=== PATIENT | male | born 1935 | race Caucasian/White ===

== ENCOUNTER 2019-08-03 07:52 | Inpatient (IN) ==
[2019-08-03] MEDS ORDERED: ASPIRIN PO ONE (07:58)
[2019-08-03] MEDS ORDERED: CARDIZEM 100 MG/NS 100 MG/100 ML IVPB IV SCH (08:00)
[2019-08-03] MEDS ORDERED: CARDIZEM IV ONE ×3 (08:00→12:42)
--- NOTE | 2019-08-03 08:17 | PROVIDER DOCUMENTATION ---
HPI-Cardiac General - General Chief Complaint: Chest Pain Stated Complaint: AFIB RVR/CHEST PAIN Time Seen by Provider: 08/03/19 07:55 Source: patient, EMS Allergies/Adverse Reactions: Patient Allergies Allergy/AdvReac Type Severity Reaction Status Date / Time Latex, Natural Rubber AdvReac RASH Verified 07/05/19 12:03 Home Medications: Home Medication List Medication Instructions Recorded Confirmed Last Taken Type Levothyroxine [Synthroid] 50 microgm PO DAILY 03/22/18 07/08/19 Unknown History Ubidecarenone [Coq-10] 100 mg PO DAILY 03/22/18 07/08/19 Unknown History Apixaban [Eliquis] 1 tab PO BID 07/05/19 07/08/19 Unknown History Azelastine HCl 2 spr NS BID 07/05/19 07/08/19 Unknown History Metoprolol [Lopressor] 50 mg PO BID 07/05/19 07/08/19 Unknown History Mv-Mins/Folic/Lycopene/Ginkgo [One 1 ea PO DAILY 07/05/19 07/08/19 Unknown History Daily Men's 50+ Tablet] - History of Present Illness-Cardiac Nature of Presenting Problem: HX OF AFIB, BROUGHT BY EMS FOR CHEST PAIN AND INCREASED HR THIS MORNING. NO FEVER. NO LE PAIN OR SWELLING. PAIN IS MIDSTERNAL Location: reports: substernal Quality of Pain: reports: aching Severity in ED: mild Onset/Duration: this morning Timing: improving Context/Activities at Onset: reports: none Modifying Factors: improves with: nothing Palpitation Quality: fast/pounding heart beat History of arrythmia: reports: A-Fib Recent use of:: reports: no stimulants Associated Symptoms: denies: abdominal pain, fever/chills Similar Symptoms Previously?: Yes Review of Systems - Adult - REVIEW OF SYSTEMS - ADULT Constitutional: reports: no symptoms reported Cardiovascular: reports: see HPI Respiratory: reports: no symptoms reported Gastrointestinal: reports: no symptoms reported Neurological: reports: no symptoms reported All Other Systems: Reviewed and Negative Past History - Adult - PAST MEDICAL HISTORY-ADULT Review of Records: reports: Nursing Assessment Review, Medications Reviewed, Social history reviewed & non-contributory. Cardiovascular: reports: arrhythmia (PVCs), HTN, hyperlipidemia Gastrointestinal: reports: GERD Psychiatric: reports: anxiety Other Conditions: reports: denies history - PRIOR SURGERIES/PROCEDURES Surgical/Procedure History: reports: hernia repair - IMMUNIZATION STATUS Childhood Immunizations: See Nurse Assessment Flu Vaccine: See Nurse Assessment - FAMILY HISTORY Family History: reviewed, not pertinent Physical Exam-General - PHYSICAL EXAM-ADULT Initial Vital Signs Reviewed: Yes - CONSTITUTIONAL General Appearance: alert, no apparent distress - EYES Eyes: PERRL/EOMI - HEAD, EARS, NOSE, MOUTH & THROAT HENMT: moist mucous membranes, normal ENT inspection - NECK Neck: non-tender, full range of motion, supple - RESPIRATORY Respiratory: chest non-tender, lungs clear, normal breath sounds, no respiratory distress - CARDIOVASCULAR Cardiovascular: no edema, no gallop, no JVD, tachycardia, irregularly irregular - GASTROINTESTINAL (ABDOMEN) Abdominal Exam: normal bowel sounds, non tender, soft - MUSCULOSKELETAL Extremity: normal inspection, no pedal edema, no calf tenderness - SKIN Integumentary: normal color, normal turgor, warm/dry - NEUROLOGIC Neurologic: no motor/sensory deficits - PSYCHIATRIC Psych/Mental Status: normal mood/affect - HEART Score HEART Score: History: Slightly Suspicious HEART Score: ECG: Non-Specific Repolarization Disturbance/LBBB/PM HEART Score: Age: > or = 65 Years HEART Score: Risk Factors for Atherosclerotic Disease: 1 or 2 Risk Factors HEART Score: Troponin: < or = Normal Limit Total HEART Score:: 4 Progress - PLAN OF CARE/RESULTS Progress/Plan/Lab Results: Vital Signs - 8 hr 08/03/19 07:56 08/03/19 08:14 08/03/19 08:27 Temperature 99.7 F H Pulse Rate 161 H 155 H 123 H Respiratory Rate 19 20 23 Blood Pressure 109/75 86/62 83/63 O2 Sat by Pulse Oximetry 96 95 95 08/03/19 08:31 Temperature Pulse Rate 125 H Respiratory Rate 28 H Blood Pressure 91/63 O2 Sat by Pulse Oximetry 96 Laboratory Results - last 24 hr 08/03/19 08:27 WBC 17.60 H RBC 3.87 L Hgb 11.9 L Hct 35.2 L MCV 91.0 MCH 30.7 MCHC 33.8 RDW Std Deviation 12.3 Plt Count 207 MPV 10.6 H Immature Gran % (Auto) 0.3 Neut % (Auto) 82.9 H Lymph % (Auto) 5.1 L [place] % (Auto) 11.4 H Eos % (Auto) 0.2 Baso % (Auto) 0.1 Immature Gran # (Auto) 0.05 H Neut # (Auto) 14.59 H Lymph # (Auto) 0.89 L [place] # (Auto) 2.01 H Eos # (Auto) 0.04 Baso # (Auto) 0.02 Orders Category Date Time Status Cardiac Monitoring DIRECTED Care 08/03/19 07:58 Active Notify MD of + Sepsis Screen NOW Care 08/03/19 08:29 Active Notify Physician As Ordered Care 08/03/19 08:29 Active Oxygen Therapy- ED Nursing DIRECTED Care 08/03/19 07:58 Active Saline Loc NOW Care 08/03/19 07:58 Active BLOOD CULTURE [BLDCUL] Stat Lab 08/03/19 08:29 Uncollected CBC WITH ELECTRONIC DIFF [HEME] Stat Lab 08/03/19 08:27 Completed CK PROFILE [SP CHEM] Stat Lab 08/03/19 08:27 Received COMPREHENSIVE METABOLIC PANEL [CHEM] Stat Lab 08/03/19 08:27 Received LACTATE, PLASMA [CHEM] Lab 08/03/19 11:30 Uncollected LACTATE, PLASMA [CHEM] Lab 08/03/19 14:30 Uncollected LACTATE, PLASMA [CHEM] Q3H Lab 08/03/19 08:27 Received PRO B-NATRIURETIC PEPTIDE Stat Lab 08/03/19 08:27 Received PROTIME WITH INR [COAG] Stat Lab 08/03/19 08:27 Received PTT [COAG] Stat Lab 08/03/19 08:27 Received TROPONIN T Stat Lab 08/03/19 08:27 Received URINALYSIS W/POSS RFLX CULT [URINALYSIS] Stat Lab 08/03/19 08:29 Uncollected 0.9% Sodium Chloride Inj [Ns] 500 ml Med 08/03/19 08:25 Discontinued .ROUTE As directed 0.9% Sodium Chloride Inj [Ns] 500 ml Med 08/03/19 08:24 Active IV 999 mls/hr Aspirin Med 08/03/19 07:58 Discontinued 325 mg PO NOW ONE Diltiazem 100 mg/Ns [Cardizem 100 mg/Ns] Med 08/03/19 08:00 Active 100 mg in 100 ml IV As Directed mls/hr Diltiazem [Cardizem] Med 08/03/19 08:00 Discontinued 20 mg IV NOW ONE Diltiazem [Cardizem] Med 08/03/19 08:00 Discontinued 20 mg IV NOW ONE CP/SOB/Palp >45 yrs of Age Stat Oth 08/03/19 07:58 Ordered Oxygen Device Stat Oth 08/03/19 08:29 Active EKG [EKG] Stat Ther 08/03/19 07:58 Ordered Result Diagrams: 08/03/19 08:27 - REASSESSMENT Reassessment #1 Time Reassessed: 08:42 Reassessment Comment: DR JAMISON IN ER TO SEE PATIENT AND ASSUME CARE - EKG 1 Time of EKG reading by physician:: 08:16 EKG Read and Signed by:: Jimmy Wheatley EKG Interpretation (*Must complete 3 of following elements*): Abnormal Rate: 153 Rhythm: AFIB / FLUTTER QRS: normal ST Wave: non-specific ST changes Departure - Departure Date of Disposition Decision: 08/03/19 Time of Disposition Decision: 08:42 DIAGNOSIS: Atrial fibrillation with rapid ventricular response Disposition: ADMITTED INPATIENT 09 Certified Medical Emergency: Emergent Condition: Fair Referrals and Follow-Ups: Se Jamison MD [Primary Care Provider] - - Critical Care Note This patient required my direct & personal management of CC.: Yes Total Time (mins): 35 Critical Care Statement: This patient required my direct personal management to treat or rule out processes, the absence of which, could potentiallly result in sudden, clinically significant life or limb threatening deterioration. Attestation - Physician/ GONZALO Attestation Patient care was provided by Advanced Practice Provider:: No The physician spent face to face time with patient:: Yes Advanced Practice Provider documentation review:: Supervising physician onsite and consulted in the evaluation and care of this patient. The physician did have a face to face encounter with the patient.
[2019-08-03] MEDS ORDERED: NS 500 ML IV ONE (08:24)
[2019-08-03] MEDS ORDERED: NS 500 ML ONE (08:25)
[2019-08-03 08:35] LABS: BASO# 0.02 X1000 (0.0-0.2); BASO% 0.1 % (0.0-0.8); EOS# 0.04 X1000 (0.0-0.7); EOS% 0.2 % (0.0-10.0); HEMATOCRIT 35.2 % (42.0-52.0); HEMOGLOBIN 11.9 g/dL (14.0-18.0); IMM GRAN# 0.05 X1000 (0.0-0.04); IMM GRAN% 0.3 % (0.0-0.5); LYMPH# 0.89 X1000 (1.2-3.4); LYMPH% 5.1 % (20.5-51.1); MCH 30.7 PG (27-31); MCHC 33.8 g/dL (33-37); MONO# 2.01 X1000 (0.11-0.59); MONO% 11.4 % (1.7-9.3); MPV 10.6 FL (7.4-10.4); NEUT# 14.59 X1000 (1.4-6.5); NEUT% 82.9 % (42.2-75.2); PLT 207 X1000 (130-400); RBC 3.87 XMIL (4.7-6.1); RDW 12.3 % (11.5-14.5)
[2019-08-03] MEDS ORDERED: NEO-SYNEPHRINE 50 MG in NS 250 ML IV SCH ×2 (08:45→12:45)
[2019-08-03 08:47] LABS: INR 1.61; PROTIME 19.5 Seconds (11.0-16.0)
[2019-08-03 08:48] LABS: PTT 33.7 Seconds (22.3-41.8)
--- NOTE | 2019-08-03 08:51 | EKG Report ---
Test Performed on : 08/03/2019 08:00:33 AM Test Reason : AFIB Blood Pressure : / mmHG Vent. Rate : 153 BPM Atrial Rate : 337 BPM P-R Int : 000 ms QRS Dur : 082 ms QT Int : 284 ms P-R-T Axes : 000 -42 040 degrees QTc Int : 453 ms Atrial flutter. with variable AV block. Left axis deviation Nonspecific ST abnormality Abnormal ECG When compared with ECG of 08-JUL-2019 14:20, (Unconfirmed) Atrial flutter. has replaced Sinus rhythm. Vent. rate has increased BY 75 BPM Unconfirmed Result
[2019-08-03 09:45] LABS: ALB/GLOB RATIO 1.2; ALBUMIN 3.4 g/dL (3.5-5.0); CALCIUM 8.5 mg/dL (8.8-10.2); CREATININE 1.4 mg/dL (0.7-1.2); POTASSIUM 3.5 mmol/L (3.5-5.1); TOTAL BILIRUBIN 0.92 mg/dL (0.20-1.00); TOTAL PROTEIN 6.2 g/dL (6.3-8.3)
--- NOTE | 2019-08-03 10:29 | Diag Imaging Result Doc PS360 ---
EXAM: CHEST-PORTABLE HISTORY: cough TECHNIQUE: Single view COMPARISON: 07/05/2019 FINDINGS: The lungs are well expanded. The heart is mildly enlarged. The vessels are not distended. There are increased interstitial markings in the medial right base. No effusion identified. IMPRESSION: Mild cardiomegaly. Small right basilar infiltrate Electronically signed by Iban Ramos 08/03/2019 10:27 AM
[2019-08-03 10:40] LABS: URINE SOURCE CLEAN CATCH
[2019-08-03 10:47] LABS: BILIRUBIN URINE NEGATIVE (NEGATIVE); BLOOD URINE MODERATE (NEGATIVE); COLOR YELLOW; GLUCOSE URINE NEGATIVE (NEGATIVE); KETONE URINE TRACE mg/dL (NEGATIVE); LEUKOCYTES URINE NEGATIVE (NEGATIVE); NITRITE URINE NEGATIVE (NEGATIVE); PROTEIN URINE 50 mg/dL (NEGATIVE); SP GRAVITY URINE 1.023; TURBIDITY URINE CLEAR (CLEAR); UR EPITHELIAL CELLS <10 /HPF (<10); URINE BACTERIA NEGATIVE /HPF; URINE RBC 20-40 /HPF (<10); URINE WBC <10 /HPF (<10); UROBILINOGEN URINE 6 mg/dL (NORMAL)
[2019-08-03] MEDS ORDERED: ALBUTEROL NEB INH ONE (10:50)
[2019-08-03] MEDS: LEVAQUIN 500 MG/D5W 500 MG/100 ML IVPB IV SCH (11:06)
--- NOTE | 2019-08-03 11:36 | HISTORY AND PHYSICAL ---
CHIEF COMPLAINT: Palpitations and cough. HISTORY OF PRESENT ILLNESS: Mr. Mcneal is an 84-year-old gentleman with a history of paroxysmal atrial fibrillation, hypothyroidism and Parkinson disease. He presented to the emergency room this morning by ambulance after feeling a sudden onset of rapid heart rate around 6 a.m. He denies any chest pain. He and his both agree that for about a week, he has had progressively worsening cough and chest congestion, but he denies any fever or chills. He has occasional yellow sputum production. He has no previous history of bronchospasm or other chronic lung disease. 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 Skip Maldonado. He had an echocardiogram in 10/2018 which showed normal wall motion and left ventricular ejection fraction. Normal left atrial size as well, 3.2 cm. PAST MEDICAL HISTORY: He was treated in 2004 for prostate cancer with brachytherapy. He has a history of hypertension, elevated cholesterol and mild chronic kidney disease. He is on thyroid replacement with recent TSH normal. FAMILY HISTORY: Noncontributory. SOCIAL HISTORY: He is and has 2 adult children. He is retired from [employer]. He has never used tobacco and denies recent alcohol intake. REVIEW OF SYSTEMS: Appetite has been adequate with no recent weight loss. HEENT: Vision and hearing are adequate without recent changes. Respiratory: Cough with occasional sputum production as noted above. His chest feels moderately congested. Cardiovascular: He has a history of paroxysmal atrial fibrillation and has been on metoprolol for this. The dose has been reduced to 12.5 mg q.12 hours because of severe fatigue with higher doses. ALLERGIES: No known drug allergies. HOME MEDICATIONS: Eliquis 2.5 mg twice a day, multivitamins 1 daily, Nitrostat 0.4 mg sublingual p.r.n. for chest pain, levothyroxine 50 mcg daily, lorazepam 0.5 mg nightly at bedtime p.r.n. for sleep, metoprolol tartrate 25 mg 1/2 tablet twice a day. PHYSICAL EXAMINATION: VITAL SIGNS: Temperature 99.7, pulse initially 161, blood pressure 109/75, respiratory rate 19, O2 saturation 96% on room air. He is following a dose of intravenous Cardizem with heart rate drop to approximately 120, but his blood pressure dropped to 75/56. GENERAL APPEARANCE: Alert, talkative, elderly gentleman in no acute distress. SKIN: Warm and dry without rash. HEENT: Pupils are equal, round and reactive to light. Extraocular movements were intact. Oropharynx is benign with moist mucous membranes. NECK: Supple with no jugular venous distention, adenopathy, thyromegaly or bruits. CHEST: There are scattered upper airway sticky sounds in both lower lung hoyt, greater on the right. There are a few inspiratory crackles on the right base. Air movement in the upper lobes is quite good. CARDIOVASCULAR: There is an irregularly irregular tachycardia with variable S1. I do not appreciate any murmurs or gallops. ABDOMEN: Soft, flat and nontender with active bowel sounds. There is no guarding or rebound tenderness present. EXTREMITIES: Normal muscle mass. No edema in his ankles or feet. NEUROLOGICAL: There is reduced facial expression. His mental status and speech appear normal. Trace left hand resting tremor is noted. His gait is not tested. ASSESSMENT: 1. Suspected right lower lobe pneumonia based on chest x-ray with infiltrate as well as his elevated white blood count. 2. Paroxysmal atrial fibrillation with rapid ventricular response. He now has some hypotension after the loading dose of Cardizem. The Cardizem drip has been withheld, and his fluid bolus provided only temporary improvement in his blood pressure. I have discussed this with Dr. Alvarenga, and he indicated that he wants Mr. Mcneal admitted to the ICU with Get-Synephrine drip and will see him there. 3. Severe fatigue, possibly related to beta blockers but also possibly a symptom of his Parkinson's disease. 4. Parkinson's disease, followed by Kayla Neil, nurse practitioner. She has recently resumed his Sinemet, and he is now up to 1 tablet 3 times a day and will continue this. 5. Hypothyroidism, replaced. TREATMENT PLAN: Admit to ICU with Cardiology consult and will treat his pneumonia with intravenous Levaquin. cc: Se Jamison MD [facility]
[2019-08-03] MEDS: SINEMET 25/100 PO SCH ×3 (12:52→16:09)
[2019-08-03] MEDS: ELIQUIS PO SCH ×2 (12:52→20:17)
[2019-08-03] MEDS: SYNTHROID PO SCH (12:52)
[2019-08-03] MEDS: CARDIZEM 100 MG/NS 100 MG/100 ML IVPB IV SCH ×2 (12:56→23:17)
[2019-08-03] MEDS ORDERED: SOLU-MEDROL IV ONE (15:14)
[2019-08-03] MEDS ORDERED: MUCINEX CHILDREN'S COUGH PO SCH (15:15)
--- NOTE | 2019-08-03 15:43 | CARDIOLOGY CONSULTATION ---
DATE: 08/03/2019 CONSULTATION REQUESTED BY: Dr. Se Jamison. REASON FOR CONSULTATION: Atrial fibrillation with rapid response. CHIEF COMPLAINT: Palpitations, chest discomfort. HISTORY OF PRESENT ILLNESS: Mr. Mcneal states that this morning at about 7 a.m. when he was in the kitchen he developed an episode of sudden onset of palpitations. This was acknowledged by him as his classical atrial fibrillation. He notified his and he was brought to the emergency room at about 45 minutes later. They did an EKG that shows atrial fibrillation with a rapid response. He has been given Cardizem 15 mg bolus in the ICU and he has converted already back to sinus rhythm. The patient is feeling back to normal. He is not having any further issues. PAST MEDICAL HISTORY: Significant for previous diagnosis of paroxysmal atrial fibrillation. He has been taking Eliquis for it. He has a history of hypertension. He has hypothyroidism. Recently, he has been considered a case of Parkinson disease and has been started on levodopa and carbidopa. SURGICAL HISTORY: Positive for hernia repair, cyst removed from the back, umbilical hernia. SOCIAL HISTORY: He has been to his for 59 years. They have 2 children. One lives in the [facility] and the other 1 lives in [place]. 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 He quit smoking many years ago. FAMILY HISTORY: Negative for heart disease. HOME MEDICATIONS: Included Eliquis 5 mg twice daily, carbidopa levodopa, Sinemet 25/100 three times a day. He also takes levothyroxine 50 mcg daily and metoprolol, he has been taking according to my records 25 mg twice daily. REVIEW OF SYSTEMS: The patient apparently for the past 2 or 3 weeks has developed a persistent cough, nonproductive. He also has issues with shakiness, stiffness, and sometimes his balance is not good. This has to do more with his Parkinson's. His appetite is not good. He has lost about 10 pounds over the past 6 months. PHYSICAL EXAMINATION: Vital signs: Blood pressure is 116/66, temperature is 99.3 degrees. In the ER it was 99.7. Respirations 22, pulse 78. General: He is awake, alert, oriented, cooperative. His voice is somewhat muffled. HEENT: Otherwise unremarkable. Chest: Shows rhonchi especially in the right lung field. Heart: Sounds are regular rhythmic. I do not hear any gallop or murmur. Abdomen: Nontender, soft. Extremities: Showed no obvious edema, although there is a trace puffiness there. Neurological: Nonfocal. Moves 4 extremities. He does have some stiffness and subtle shakiness. LABORATORY WORK: Sodium 135, potassium 3.5, BUN 29, creatinine 1.4. His AST 40, ALT 49. Troponin is 0.010. ProBNP level 701. Normal is up to 450 pg/mL. His PT is 19.5, PTT 33.7. White cell count 17,600, hemoglobin 11.9. Chest x-ray has been reported by Dr. Ramos as indicating a small right basilar infiltrate. IMPRESSIONS: 1. Patient who presented to the ER with palpitations, found in atrial fibrillation with rapid response. He has converted to sinus rhythm after 1 dose of Cardizem IV. 2. The patient has a persistent cough and his chest x-ray is abnormal, suggesting an infiltrate in the right lung. 3. Presumably Parkinson disease. 4. Hypothyroidism. 5. Hypertension. 6. Long-term anticoagulation with apixaban. RECOMMENDATION: At this time, I would suggest to continue low-dose Get-Synephrine and low-dose Cardizem as we are doing to maintain sinus rhythm. I would suggest to do a CT of the thorax without contrast to further define the extent of the infiltrate in the right lung. Also check inflammatory markers and get an echocardiogram in the morning. I would suggest to put this patient on IV methylprednisolone to deal with his bronchial inflammation. He evidently has airway irritation. We will prescribe some Robitussin DM around the clock to help him with the cough. We will see how he does over the course of the next couple of days. cc: Mesfin Alvarenga MD
[2019-08-03] MEDS: ROBITUSSIN-DM PO SCH ×2 (16:09→23:13)
[2019-08-03] MEDS: ALBUTEROL NEB INH SCH ×2 (16:20→21:16)
--- NOTE | 2019-08-03 17:54 | Diag Imaging Result Doc PS360 ---
EXAM: CT THORAX W/O CONTRAST HISTORY: abnormal Chest X Ray TECHNIQUE: CT chest without contrast COMPARISON: None. FINDINGS: The heart is mildly enlarged. Prominent atherosclerosis. No aortic aneurysm. Mildly prominent mediastinal and hilar lymph nodes. There are infiltrates in the right lower lobe with air bronchograms. There are scattered calcified granuloma. Limited images of the upper abdomen reveal multiple bilateral renal stones and cysts. IMPRESSION: 1.Right lower lobe pneumonia 2.Mild cardiomegaly with prominent atherosclerosis 3.Bilateral nephrolithiasis This exam was performed using automated exposure control, adjustment of mA or kV according to patient size, and/or use of iterative reconstruction technique. Electronically signed by Iban Ramos 08/03/2019 5:52 PM
[2019-08-03] MEDS: SOLU-MEDROL IV SCH (22:11)
[2019-08-04] MEDS: ALBUTEROL NEB INH SCH ×4 (03:28→21:00)
--- NOTE | 2019-08-04 05:25 | EKG Report ---
Test Performed on : 08/04/2019 04:23:33 AM Test Reason : CHEST PAIN Blood Pressure : / mmHG Vent. Rate : 093 BPM Atrial Rate : 093 BPM P-R Int : 198 ms QRS Dur : 100 ms QT Int : 380 ms P-R-T Axes : 058 -32 042 degrees QTc Int : 472 ms Normal sinus rhythm. Left axis deviation Nonspecific ST abnormality Abnormal ECG When compared with ECG of 03-AUG-2019 08:00, (Unconfirmed) Sinus rhythm. has replaced Atrial flutter. Vent. rate has decreased BY 60 BPM Confirmed by Wilfredo LOYA, Sarkis ([id number]) on 08/05/2019 8:55:09 AM
[2019-08-04] MEDS: SOLU-MEDROL IV SCH ×3 (06:19→21:52)
[2019-08-04] MEDS: ELIQUIS PO SCH ×2 (08:17→21:07)
[2019-08-04] MEDS: ROBITUSSIN-DM PO SCH ×2 (08:17→16:08)
[2019-08-04] MEDS: SYNTHROID PO SCH (08:17)
[2019-08-04] MEDS: SINEMET 25/100 PO SCH ×3 (08:17→16:08)
--- NOTE | 2019-08-04 09:03 | CARDIOLOGY PROGRESS NOTE ---
DATE: 08/04/2019 CHIEF COMPLAINT: Cough, irregular heartbeat, shortness of breath. SUBJECTIVE: Mr. Mcneal had converted back to sinus rhythm yesterday after he was given Cardizem upon arrival to the ICU. We did a CT scan of the chest that showed evidence of pneumonia in the right lung. His inflammatory markers were very elevated, supporting a diagnosis of pneumonitis, more than likely infectious. Because of the protracted cough and the physical exam indicating very harsh rhonchi and breathing in the right lung field, we put him on steroids. He says his cough is better now. He is more comfortable. He has maintained sinus rhythm overnight. His 12- lead electrocardiogram this morning looks sinus rhythm with left axis, otherwise quite unremarkable. OBJECTIVE: Blood pressure 122/61, temperature 97.9, pulse 84, respirations 16. The patient is awake, alert, in no distress. HEENT is unremarkable. Chest shows some rhonchi in the right lung, not as harsh as yesterday. There is some on the left lung. Heart sounds are regular and rhythmic. No gallop or murmur. Abdomen is nontender. Extremities showed good pulses. No edema. Neurologic: Follows commands. Moves all 4 extremities. DIAGNOSTIC DATA: Blood work shows troponin is negative. A chest CT, as I said done yesterday, shows right lower lobe pneumonia with mild cardiomegaly and prominent atherosclerosis with bilateral nephrolithiasis. IMPRESSION: 1. The patient is with pneumonia, right lower lobe. 2. Paroxysmal atrial fibrillation, back in sinus rhythm. 3. Coronary atherosclerosis. 4. Hypertension. 5. Hypothyroidism. 6. Parkinson's disease. RECOMMENDATIONS: At this time, I will continue present course of action. We will see how he evolves over the next couple of days. Consideration may be given at obtaining a Pulmonary consultation if there is any suspicion that the patient may be harboring some other condition behind or underneath the pneumonia. Cardiac paulino, he seems to be stable. cc: MD Se Simons MD
[2019-08-04] MEDS: LEVAQUIN 500 MG/D5W 500 MG/100 ML IVPB IV SCH (10:03)
--- NOTE | 2019-08-04 13:40 | ECHO REPORT ---
ORDER DATE: 08/04/2019 ECHOCARDIOGRAPHIC MEASUREMENTS: 1. Interventricular septum 0.7. 2. Left ventricular posterior wall 0.7. 3. Diastolic diameter 5.1. 4. Left atrium 3.7. 5. Aorta 3.6. SUMMARY: 1. Aortic valve leaflets are sclerosed, trileaflet opening normally. 2. Pulmonic valve was normal. 3. Tricuspid valve was normal. There is moderate mitral annular calcification. Normal left ventricular cavity size. Estimated ejection fraction of 65%. 4. There was calcification in the chordae tendineae noted. 5. There is mild mitral regurgitation. 6. Mild tricuspid regurgitation. Peak velocity across the tricuspid valve was 3 m/sec. 7. Pulmonary artery systolic pressure of 46 mmHg. There is diastolic dysfunction. 8. Peak velocity across the aortic valve less than 2 m/sec. There is no aortic stenosis. There is mild aortic regurgitation. 9. There is no pericardial effusion or obvious intracardiac mass or thrombus seen. 10. There is left atrial enlargement. cc: MD Mesfin Aguilar MD Russell T. Barr, MD
[2019-08-04] MEDS: CARDIZEM 100 MG/NS 100 MG/100 ML IVPB IV SCH (18:13)
[2019-08-04] MEDS ORDERED: STERILE WATER INJ. INJ PRN (19:46)
[2019-08-04] MEDS: GEODON IM PRN (19:55)
[2019-08-05] MEDS: ROBITUSSIN-DM PO SCH ×4 (01:09→22:16)
[2019-08-05] MEDS: GEODON IM PRN (01:40)
[2019-08-05] MEDS: ALBUTEROL NEB INH SCH ×4 (03:34→19:04)
[2019-08-05] MEDS: SOLU-MEDROL IV SCH (05:25)
[2019-08-05 06:19] LABS: BASO# 0.01 X1000 (0.0-0.2); HEMATOCRIT 39.1 % (42.0-52.0); HEMOGLOBIN 13.4 g/dL (14.0-18.0); IMM GRAN% 0.5 % (0.0-0.5); LYMPH# 0.69 X1000 (1.2-3.4); LYMPH% 3.1 % (20.5-51.1); MCH 30.8 PG (27-31); MCHC 34.3 g/dL (33-37); MCV 89.9 FL (81-99); MONO# 0.99 X1000 (0.11-0.59); MONO% 4.5 % (1.7-9.3); MPV 10.7 FL (7.4-10.4); NEUT# 20.13 X1000 (1.4-6.5); NEUT% 91.9 % (42.2-75.2); PLT 276 X1000 (130-400); RBC 4.35 XMIL (4.7-6.1); RDW 12.5 % (11.5-14.5); WBC 21.92 X1000 (4.8-10.8)
[2019-08-05 07:22] LABS: CALCIUM 9.1 mg/dL (8.8-10.2); CREATININE 1.4 mg/dL (0.7-1.2); POTASSIUM 3.7 mmol/L (3.5-5.1)
--- NOTE | 2019-08-05 07:27 | EKG Report ---
Test Performed on : 08/05/2019 06:59:53 AM Test Reason : paroxysmal atrial fibrillation Blood Pressure : / mmHG Vent. Rate : 104 BPM Atrial Rate : 104 BPM P-R Int : 176 ms QRS Dur : 084 ms QT Int : 366 ms P-R-T Axes : 060 -29 026 degrees QTc Int : 481 ms Sinus tachycardia. Otherwise normal ECG When compared with ECG of 04-AUG-2019 04:23, (Unconfirmed) No significant change was found Confirmed by Wilfredo LOYA, Sarkis ([id number]) on 08/05/2019 9:03:08 AM
--- NOTE | 2019-08-05 07:51 | CARDIOLOGY PROGRESS NOTE ---
DATE: 08/05/2019 CHIEF COMPLAINT: Shortness of breath, irregular heartbeat, tremors. SUBJECTIVE: Mr. Mcneal was somewhat agitated last night. They gave him I believe an order of Jenn. This morning, he is a little sleepy. Otherwise, he has had an uneventful night. His vital signs are more stable. He is off Get-Synephrine. He remains in sinus rhythm. His EKG this morning shows normal sinus rhythm, rate is 104 beats per minute, sinus tachycardia. Vital signs this morning showed a blood pressure of 124/61, temperature 97.9 degrees, pulse 104, respirations 13. GENERAL: He is awake although he falls asleep very easily. He has some shakiness. He is a little flushed. HEENT: Unremarkable. CHEST: Diminished breath sounds bilaterally. HEART: Sounds are regular, rhythmic. No gallop or murmur. ABDOMEN: Nontender. EXTREMITIES: Showed no obvious edema. NEUROLOGICAL: Follows commands, moves 4 extremities. IMPRESSION: 1. Patient who has presented with right lower lobe pneumonia. 2. Paroxysmal atrial fibrillation secondary to metabolic stress. 3. Parkinson's disease. 4. Patient with a history of hypertension and hypothyroidism. RECOMMENDATIONS: At this time, we will discontinue Get-Synephrine and IV Diltiazem. We are going to put him on oral Diltiazem plus low dose metoprolol. His steroids will be discontinued today. We will see how he does over the course of the ensuing days. I believe he is responding well to therapy. cc: MD Se Simons MD
[2019-08-05] MEDS ORDERED: LOPRESSOR IV ONE (08:28)
[2019-08-05] MEDS: LOPRESSOR PO SCH ×2 (08:40→22:32)
[2019-08-05] MEDS: CARDIZEM PO SCH ×3 (10:31→22:17)
[2019-08-05] MEDS: SINEMET 25/100 PO SCH ×3 (10:31→17:08)
[2019-08-05] MEDS: ELIQUIS PO SCH ×2 (10:31→22:17)
[2019-08-05] MEDS: SYNTHROID PO SCH (10:32)
[2019-08-05] MEDS: LEVAQUIN 500 MG/D5W 500 MG/100 ML IVPB IV SCH (10:34)
[2019-08-05] MEDS: MIRALAX PO SCH (22:17)
[2019-08-06] MEDS: ALBUTEROL NEB INH SCH ×5 (00:16→19:43)
[2019-08-06] MEDS: ROBITUSSIN-DM PO SCH ×3 (05:47→17:00)
[2019-08-06] MEDS: CARDIZEM PO SCH ×4 (06:15→21:17)
--- NOTE | 2019-08-06 08:07 | EKG Report ---
Test Performed on : 08/06/2019 07:12:31 AM Test Reason : paroxysmal atrial fibrillation Blood Pressure : / mmHG Vent. Rate : 088 BPM Atrial Rate : 088 BPM P-R Int : 162 ms QRS Dur : 084 ms QT Int : 384 ms P-R-T Axes : 043 -24 026 degrees QTc Int : 464 ms Normal sinus rhythm. Normal ECG When compared with ECG of 05-AUG-2019 06:59, No significant change was found Confirmed by Wilfredo LOYA, Sarkis ([id number]) on 08/06/2019 8:55:12 AM
[2019-08-06] MEDS ORDERED: DULCOLAX PR PRN (08:16)
[2019-08-06] MEDS ORDERED: ATIVAN PO PRN (08:19)
[2019-08-06] MEDS: MIRALAX PO SCH (08:30)
[2019-08-06] MEDS: SYNTHROID PO SCH (08:30)
[2019-08-06] MEDS: SINEMET 25/100 PO SCH ×4 (08:30→17:00)
[2019-08-06] MEDS: LOPRESSOR PO SCH ×2 (08:30→21:16)
[2019-08-06] MEDS: ELIQUIS PO SCH ×2 (08:30→21:17)
[2019-08-06] MEDS: LEVAQUIN 500 MG/D5W 500 MG/100 ML IVPB IV SCH (11:53)
[2019-08-07] MEDS: ALBUTEROL NEB INH SCH ×4 (03:04→21:54)
[2019-08-07] MEDS: ROBITUSSIN-DM PO SCH ×2 (04:46→08:51)
[2019-08-07] MEDS: CARDIZEM PO SCH ×3 (07:15→20:44)
[2019-08-07 07:38] LABS: BASO# 0.01 X1000 (0.0-0.2); BASO% 0.1 % (0.0-0.8); EOS# 0.04 X1000 (0.0-0.7); EOS% 0.2 % (0.0-10.0); HEMATOCRIT 37.2 % (42.0-52.0); HEMOGLOBIN 12.4 g/dL (14.0-18.0); IMM GRAN# 0.16 X1000 (0.0-0.04); IMM GRAN% 0.8 % (0.0-0.5); LYMPH# 1.13 X1000 (1.2-3.4); LYMPH% 5.7 % (20.5-51.1); MCH 30.8 PG (27-31); MCHC 33.3 g/dL (33-37); MCV 92.5 FL (81-99); MONO# 1.95 X1000 (0.11-0.59); MONO% 9.9 % (1.7-9.3); MPV 10.1 FL (7.4-10.4); NEUT# 16.47 X1000 (1.4-6.5); NEUT% 83.3 % (42.2-75.2); PLT 318 X1000 (130-400); RBC 4.02 XMIL (4.7-6.1); WBC 19.76 X1000 (4.8-10.8)
[2019-08-07 07:47] LABS: CREATININE 1.5 mg/dL (0.7-1.2); POTASSIUM 4.2 mmol/L (3.5-5.1)
[2019-08-07] MEDS ORDERED: PREVNAR 13 IM ONE (08:23)
[2019-08-07] MEDS: SYNTHROID PO SCH (08:50)
[2019-08-07] MEDS: MIRALAX PO SCH (08:50)
[2019-08-07] MEDS: LOPRESSOR PO SCH ×2 (08:50→20:44)
[2019-08-07] MEDS: ELIQUIS PO SCH ×2 (08:52→20:44)
[2019-08-07] MEDS: LEVAQUIN PO SCH (08:55)
[2019-08-07] MEDS: SINEMET 25/100 PO SCH (12:21)
[2019-08-07] MEDS ORDERED: ATIVAN PO ONE (12:23)
[2019-08-08] MEDS: ALBUTEROL NEB INH SCH ×5 (03:12→20:44)
[2019-08-08] MEDS: ROBITUSSIN-DM PO SCH ×3 (03:56→17:00)
[2019-08-08] MEDS: SINEMET 25/100 PO SCH ×4 (03:56→17:41)
[2019-08-08] MEDS: CARDIZEM PO SCH ×4 (03:58→22:23)
[2019-08-08] MEDS: ELIQUIS PO SCH ×2 (08:36→22:23)
[2019-08-08] MEDS: MIRALAX PO SCH (08:37)
[2019-08-08] MEDS: SYNTHROID PO SCH (08:38)
[2019-08-08] MEDS: LEVAQUIN PO SCH (08:38)
[2019-08-08] MEDS: LOPRESSOR PO SCH ×2 (08:39→22:22)
[2019-08-08] MEDS: ATIVAN PO PRN (22:22)
[2019-08-09] MEDS: ROBITUSSIN-DM PO SCH ×3 (01:48→18:14)
[2019-08-09] MEDS: ALBUTEROL NEB INH SCH ×4 (02:57→21:09)
[2019-08-09] MEDS: CARDIZEM PO SCH ×3 (06:16→23:14)
[2019-08-09] MEDS: SINEMET 25/100 PO SCH ×4 (06:16→23:14)
[2019-08-09 07:20] LABS: CALCIUM 9.5 mg/dL (8.8-10.2); CREATININE 1.3 mg/dL (0.7-1.2); POTASSIUM 4.4 mmol/L (3.5-5.1)
[2019-08-09 07:34] LABS: BASO# 0.01 X1000 (0.0-0.2); BASO% 0.1 % (0.0-0.8); EOS# 0.19 X1000 (0.0-0.7); EOS% 1.2 % (0.0-10.0); HEMATOCRIT 40.4 % (42.0-52.0); HEMOGLOBIN 13.4 g/dL (14.0-18.0); MCHC 33.2 g/dL (33-37); MCV 93.5 FL (81-99); MONO# 1.64 X1000 (0.11-0.59); MONO% 10.4 % (1.7-9.3); MPV 9.9 FL (7.4-10.4); NEUT# 12.03 X1000 (1.4-6.5); NEUT% 76.3 % (42.2-75.2); PLT 355 X1000 (130-400); RBC 4.32 XMIL (4.7-6.1); RDW 13.2 % (11.5-14.5); WBC 15.77 X1000 (4.8-10.8)
[2019-08-09] MEDS: ELIQUIS PO SCH ×2 (10:47→23:16)
[2019-08-09] MEDS: LOPRESSOR PO SCH ×2 (10:47→23:14)
[2019-08-09] MEDS: SYNTHROID PO SCH (10:47)
[2019-08-09] MEDS: LEVAQUIN PO SCH (10:47)
[2019-08-09] MEDS: MIRALAX PO SCH (10:47)
[2019-08-09] MEDS ORDERED: CALMOSEPTINE OINTMENT TOP PRN (11:27)
[2019-08-09] MEDS: ATIVAN PO PRN (23:14)
[2019-08-10] MEDS: ALBUTEROL NEB INH SCH ×4 (02:57→20:01)
[2019-08-10] MEDS: ROBITUSSIN-DM PO SCH ×3 (04:00→17:40)
[2019-08-10] MEDS: SINEMET 25/100 PO SCH ×3 (05:07→17:40)
[2019-08-10] MEDS: CARDIZEM PO SCH ×3 (05:08→21:28)
[2019-08-10] MEDS: SYNTHROID PO SCH ×2 (06:57→07:25)
[2019-08-10] MEDS: LEVAQUIN PO SCH (09:04)
[2019-08-10] MEDS: ELIQUIS PO SCH ×2 (09:04→21:28)
[2019-08-10] MEDS: MIRALAX PO SCH (09:04)
[2019-08-10] MEDS: LOPRESSOR PO SCH ×2 (09:05→21:28)
--- NOTE | 2019-08-10 15:19 | PROGRESS NOTE ---
DATE: 08/10/2019 Mr. Mcneal is a patient of Dr. Se Jamison who was admitted on 08/03/2019. Came in for palpitations and cough. An 84-year-old gentleman with a history of paroxysmal atrial fibrillation, hypothyroidism, Parkinson's disease. He presented to the emergency room by ambulance after sudden onset of rapid heart rate at about 6 in the morning on 08/03/2019. He denies any chest pain. He and his both agree that for about a week, he has progressively had worsening cough, chest congestion. Denies any fever or chills. Occasionally yellow sputum production. He has had no previous history of bronchospasm or other chronic lung disease. Bar Finish Operator is Dr. Skip Maldonado. Echocardiogram done on 10/23/2018 showed normal wall motion, left ventricular ejection fraction was normal, normal left atrial size. PAST MEDICAL HISTORY: Treated in 2004 for prostate cancer with brachytherapy. He had history of hypertension, elevated cholesterol, and mild chronic kidney disease. He has been on thyroid replacement with his recent TSH being normal. 1. So admitted with suspected right lower lobe pneumonia on chest x-ray, infiltrate, as well as his elevated white blood cell count. 2. Paroxysmal atrial fibrillation with rapid ventricular response. He did have some hypotension after loading dose of Cardizem so Cardizem drip was withheld. Fluid bolus was provided. Discussed with Dr. Alvarenga and he was admitted to ICU on Get-Synephrine drip. 3. Severe fatigue, probably related to beta blockers. May be symptoms of his Parkinson's disease. 4. Parkinson's disease. Follow by Kayla Neil, nurse practitioner. Recently resumed his Sinemet. He is now getting 1 tablet 3 times a day. 5. Hypothyroidism, which was replaced. Sitting up in a chair. Feels better. Still pretty lethargic. His daughter was there. She is concerned about some confusion. Concerned that he is not sleeping well at night. Seems to be more somnolent during the day. She would like to get a CT of his head and he would like one too. PHYSICAL EXAMINATION: Temperature 98.1 degrees, pulse 76, respirations 16, blood pressure 111/63. Pupils are equal and round. Lungs are clear in all lung hoyt. Cardiovascular Examination: Regular rhythm and rate without murmur or S3. Abdomen is soft. Skin is warm and dry. Urine output 700 mL. ASSESSMENT AND PLAN: 1. Paroxysmal atrial fibrillation, now in sinus rhythm. 2. He has a right lower lobe pneumonia. White count is still elevated but clinically, he is better. 3. Parkinson's disease. Continue current medication. 4. He is having some trouble sleeping. Daughter is concerned about his confusion. Continue his intravenous Levaquin and we will get a CT of his head without contrast. He does not have any history of recent fall or head trauma. REVIEW OF HIS ORDERS: He is on Cardizem 60 mg q.8 hours, Lopressor 25 mg q.12, Eliquis 2.5 mg b.i.d., carbidopa/levodopa 1-1/2 tablets t.i.d., guaifenesin 10 mL q.8 hours, Levaquin 500 mg daily, Synthroid 50 mcg daily, MiraLAX 17 g daily, and Ativan 1 mg p.o. b.i.d. which has been helping apparently with his sleep. Daughter asked if there is anything else that could help him when he gets agitated. cc: MD Se Ramirez MD
--- NOTE | 2019-08-10 17:56 | Diag Imaging Result Doc PS360 ---
EXAM: CT HEAD W/O CONTRAST - 08/10/2019 HISTORY: confusion, lethargy TECHNIQUE: CT head without contrast COMPARISON: 12/17/2017 FINDINGS: There are generalized atrophic changes similar to prior. There are chronic microvascular ischemic changes similar to prior. There is no indication of recent infarct, although acute infarcts may not be immediately visible. There is no evidence of intracranial hemorrhage, mass effect, or midline shift. There is no evidence of skull fracture. There are lobulated mucosal thickening and small amount of fluid noted in the left maxillary sinus. IMPRESSION: Atrophic changes and chronic microvascular ischemic changes similar to prior. No visible acute intracranial abnormality. No hemorrhage or mass effect. There is left maxillary paranasal sinus disease noted. This exam was performed using automated exposure control, adjustment of mA or kV according to patient size, and/or use of iterative reconstruction technique. Electronically signed by Saurav De La Torre 08/10/2019 5:54 PM
[2019-08-11] MEDS: ROBITUSSIN-DM PO SCH ×4 (00:26→23:46)
[2019-08-11] MEDS: ALBUTEROL NEB INH SCH ×4 (02:54→21:14)
[2019-08-11] MEDS: CARDIZEM PO SCH ×3 (05:35→20:34)
[2019-08-11] MEDS: SINEMET 25/100 PO SCH ×3 (05:35→18:03)
[2019-08-11] MEDS: SYNTHROID PO SCH ×2 (05:36→06:18)
[2019-08-11 07:09] LABS: BASO# 0.01 X1000 (0.0-0.2); BASO% 0.1 % (0.0-0.8); EOS# 0.25 X1000 (0.0-0.7); EOS% 1.8 % (0.0-10.0); HEMATOCRIT 40.2 % (42.0-52.0); HEMOGLOBIN 13.3 g/dL (14.0-18.0); LYMPH# 1.66 X1000 (1.2-3.4); MCH 31.1 PG (27-31); MCHC 33.1 g/dL (33-37); MCV 93.9 FL (81-99); MONO# 1.51 X1000 (0.11-0.59); MONO% 10.9 % (1.7-9.3); NEUT# 10.45 X1000 (1.4-6.5); NEUT% 75.2 % (42.2-75.2); PLT 311 X1000 (130-400); RBC 4.28 XMIL (4.7-6.1); RDW 13.1 % (11.5-14.5); WBC 13.88 X1000 (4.8-10.8)
[2019-08-11] MEDS: LOPRESSOR PO SCH ×2 (08:08→20:34)
[2019-08-11] MEDS: MIRALAX PO SCH (08:08)
[2019-08-11] MEDS: LEVAQUIN PO SCH (08:08)
[2019-08-11] MEDS: ELIQUIS PO SCH ×2 (08:08→20:34)
[2019-08-12] MEDS: ALBUTEROL NEB INH SCH ×2 (03:33→08:16)
[2019-08-12] MEDS: SYNTHROID PO SCH (06:07)
[2019-08-12] MEDS: CARDIZEM PO SCH (06:07)
[2019-08-12] MEDS: SINEMET 25/100 PO SCH (06:07)
[2019-08-12] MEDS: LEVAQUIN PO SCH (08:44)
[2019-08-12] MEDS: MIRALAX PO SCH (08:44)
[2019-08-12] MEDS: ELIQUIS PO SCH (08:44)
[2019-08-12] MEDS: ROBITUSSIN-DM PO SCH (08:49)
[2019-08-12] MEDS ORDERED: LOPRESSOR PO SCH (09:00)
--- NOTE | 2019-08-12 09:25 | DISCHARGE SUMMARY ---
ADMISSION DATE: 08/03/2019 DISCHARGE DATE: 08/12/2019 FINAL DIAGNOSIS: 1. Paroxysmal atrial fibrillation with rapid ventricular response. 2. Right lower lobe pneumonia. 3. Parkinson's disease. 4. Hypothyroidism. PRESENT ILLNESS: Mr. 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 A week prior to admission, he had progressively worsening cough and chest congestion but no fever or chills. Physical examination revealed temperature of 99.7, pulse 161, blood pressure 109/75. General appearance: Alert, talkative, elderly gentleman in no distress. Neck was supple with no JVD. Chest exam: Scattered upper airway sticky sounds in both lower lung hoyt greater on the right side with a few inspiratory crackles in the right base. Cardiovascular: Irregularly irregular tachycardia with variable S1. No murmurs were appreciated. Neurologic: Reduced facial expression with trace resting tremor in the left hand. Chest x-ray showed a right lower lobe infiltrate. Electrocardiogram: Atrial fibrillation with rapid ventricular response. HOSPITAL COURSE: In the emergency room, he was given a dose of intravenous Cardizem and his heart rate slowed to approximately 120 but his blood pressure also dropped to 75/56. He was given intravenous fluids and Cardiology was consulted. He was admitted to the ICU with Get-Synephrine drip. He progressed slowly but was transferred to the floor eventually. His Parkinson's had a setback when he was given a dose of Geodon during the night by call coverage. The following morning, he had increased tremor and rigidity and sleepiness. This persisted for several days but he was eventually able to transfer from bed to chair with moderate of 1 person but I feel he will need subacute rehab to regain his strength and mobility. He is discharged today to [facility], which his requested. DISCHARGE MEDICATIONS: Dulcolax suppository rectally daily as needed for constipation, metoprolol 12.5 mg twice a day, MiraLAX 17 g daily in any liquid, Robitussin DM 10 mL q.8 hours p.r.n. for cough, Sinemet 25/100 1.5 tablets 3 times a day at 6 a.m., 12 noon, and 6 p.m., Cardizem 60 mg q.8 hours, Ceftin ointment b.i.d. to perineum as needed for moisture barrier, levothyroxine 50 mcg daily, Eliquis 2.5 mg twice a day. cc: Se Jamison MD
[2019-08-12 11:08] VITALS: BP 112/68
== END 2019-08-12 13:18 | DRG 308 ==
LOC: SUPCPDRO → ED 07:52 → ICU 07:53 → 4N 08-05 12:39
PROVIDERS: ADMIT Internal Medicine; ATTEND Internal Medicine